=== PATIENT | female | born 1985 | race Caucasian/White ===

== ENCOUNTER 2019-08-15 14:03 | Day surgery (SDC) | payer OTHER ==
[2019-08-15 14:45] VITALS: BMI 42.3
--- NOTE | 2019-08-15 15:29 | PDOC.FPROB ---
FMR OB H&P: HPI - History of Present Illness Indentification: at 21.2 weeks here for cramping History of Present Illness: 33 yo [id number] at 21.1 weeks here for persistent cramping pain. Started on the left side yesterday, took GasX which did not resolve. Pain moved to right side. Present right now, lower bilterally, feels like cramping, worse with position changes, some lower pain in the back. Denies fevers, chills. No diarrhea, has been recently constipated since being placed on iron. Associated nausea and anorexia, no emesis. No dyuria or frequency. No VB/VD/LOF. Endorses movement. Primary Care Physician: Dr. Krueger FMR OB H&P: Current - Care : 5 Para: 2022 Gestational age: 21.1 Due date: 12/25/19 - OB Labs Blood type: unknown RH: unknown Antibody Screen: unknown HIV: unknown RPR: unknown HepBsAg: unknown Quad screen: unknown Urine drug screen: not done Gonorrhea: unknown Chlamydia: unknown GBS: unknown FMR OB H&P: History - Past Medical History PMH: Anxiety - OB History OB History: 1 term 1 pLTCS with twin delivery 2 SABs - CLINICAL HAEMATOLOGIST History CLINICAL HAEMATOLOGIST History: Denies - Surgical History Sx History: Laparascopic surgery for endometriosis 1 pLTCS - Social History Social History: Denies TAD - Family History Family History: Denies FMR OB H&P: Medications - Current Home Medications: Medication Instructions Recorded Confirmed Type Mv-Mn/Iron/FA/Herbal/Digestive 1 tablet PO DAILY 04/25/16 07/03/16 History [ One Tablet] Sertraline HCl [Zoloft] 100 mg PO HS 04/25/16 07/03/16 History Ferrous Sulfate [Feosol] 325 mg PO BID tab 07/07/16 Rx Aspirin Chewable [Aspirin Chewable 08/15/19 History Tablet] Allergies/Adverse Reactions: Allergies Allergy/AdvReac Type Severity Reaction Status Date / Time No Known Drug Allergies Allergy Verified 08/15/19 14:38 FMR OB H&P: ROS - Review of Systems General: reports: weight/appetite/sleep changes. denies: fever/chills, night sweats Eyes: denies: eye pain, vision changes, double vision ENT: denies: nasal congestion, rhinorrhea Cardiovascular: denies: chest pain, edema Respiratory: denies: cough, congestion, shortness of breath Gastrointestinal: reports: abdominal pain, nausea, constipation. denies: indigestion, bloating, vomiting, diarrhea Genitourinary (Female): denies: incontinence, dysuria, hematuria, vaginal discharge, vaginal pain, vaginal bleeding Musculoskeletal: denies: pain, stiffness, tenderness Neurologic: denies: numbness, syncope, seizures, weakness Integumentary: denies: itching, rash Breast: denies: lumps, bumps Endocrine: denies: cold intolerance, heat intolerance Hematologic/Lymphatic: denies: prolonged or excessive bleeding, enlarged lymph nodes Psychological: reports: anxiety. denies: depression FMR OB H&P: Physical Exam - Physical Exam General: NAD, awake, alert and oriented HEENT: normocephalic and atraumatic, PERRLA, EOMI, MMM, conjunctiva clear Neck: supple, FROM, trachea midline Chest: non-tender to palpation Heart: RRR, normal S1/S2, no murmurs/rubs/gallops General: CTAB, no respiratory distress, good air movement Abdomen: soft, bowel sound present, other (mild tenderness to deep palpation in RLQ) Musculoskeletal: normal gait and station, pulses present, no atrophy Skin: no rash, good tugor, capillary refill <2 seconds Lymphatic: no unusual bruising or bleeding, no purpura FMR OB H&P: A/P - Problem List (1) with 21 completed weeks gestation Current Visit: Yes Status: Acute Code(s): Z3A.21 - 21 WEEKS GESTATION OF (2) Abdominal pain Current Visit: Yes Status: Acute Code(s): R10.9 - UNSPECIFIED ABDOMINAL PAIN Disposition: 1. sIUP at 21 weeks -FHTs present -No signs of labor but will get TVUS to assess for CL 2. Abd pain -UA clean catch -CBC/CRP to further assess for appendicitis. Afebrile but anorexia, nausea present -Could also be constipation but will r/o infection Discussion: Date/Time: 08/15/19 8975 This H&P was discussed with [] and [] who agree with the above documentation and plan.
[2019-08-15] MEDS ORDERED: hydrALAZINE 20 MG/ML VIAL SLOW IVP PRN (15:37)
[2019-08-15 15:49] LABS: Bacteria/HPF None Seen HPF (None Seen); Bilirubin Negative (Negative); Blood, Urine Negative (Negative); Clarity Clear (Clear); Glucose, Urine (Dipstick) Normal (Negative); Leukocyte Negative Leu/uL (Negative); Nitrite Negative (Negative); Protein, Urine (Dipstick) Negative (Neg-Trace); RBC/HPF None Seen HPF (0-3); Squamous Epithelial 0-3 HPF (0-3); Urobilinogen Normal mg/dL (Less than 2); WBC/HPF 0-3 HPF (0-3)
[2019-08-15 15:51] LABS: Urine Culture Reflex No No
--- NOTE | 2019-08-15 16:13 | PDOC.EVN ---
Event Note - Event Note Event Note: TVUS wasa 5cm. UA clear.
--- NOTE | 2019-08-15 16:18 | HP ---
TIME OF EVALUATION: 1535 hours until 1550 hours. This is a patient Dr. Krueger. CHIEF COMPLAINT: Nausea and constipation and some bilateral lower quadrant discomfort. HISTORY OF PRESENT ILLNESS: In brief, this is a 33-year-old female, G5, P2-0-2-3 (history of twins), who is at 21 weeks and 1 day with complaint of crampy, left greater than right pelvic pain, worse with ambulation. She also states some nausea, but no fever. She does admit to having some constipation due to her iron supplements. PAST MEDICAL HISTORY: Otherwise negative. OB HISTORY: She had a in the past and one set of twins. PAST SURGICAL HISTORY: Laparoscopy for endometriosis and a . SOCIAL HISTORY: Negative for alcohol, tobacco, and drug use. PHYSICAL EXAMINATION: VITAL SIGNS: She is afebrile and normotensive. GENERAL: Clinically, she is in no acute distress. ABDOMEN: I evaluated the patient's abdomen at bedside, and though it is slightly obese, it is nonsurgical. Uterine fundus is also soft and nontender. PELVIC: On perineal inspection, there is no gross evidence of bleeding or of leakage of fluid. Doppler heart tones are 140 to 150s on spot check (monitors are not on due to EGA). INTERVENTIONS ORDERED: We have ordered a UA, CBC, and a transvaginal ultrasound. ASSESSMENT: This is a 33-year-old female, 5, para 2-0-2-3, who is at 21 weeks and 1 day with nonspecific lower pelvic pain. Although she is having some nausea with this pain, she does have a possible etiology which is her constipation. Constipation could explain the spasm/colicky type of lower pelvic pain and nausea. However, I did talk to her about the possibility of subacute appendicitis. However, the fact that she is not febrile is reassuring. PLAN: 1. Await the test as above. 2. I did discuss with the patient, and Dr. Flores who was present with me, the possibility of an MRI for appendix check. We both agree that we can defer this until necessary because my index of suspicion is not very high at this time. 3. We will await for the laboratory interventions and I do suspect that this is likely a combination of round ligament pain and possibly constipation, although we did address the issue of an MRI if necessary. Job ID: [id number] [facility]
--- NOTE | 2019-08-15 16:26 | ULT ---
Limited obstetrical ultrasound INDICATION: History of with cramps; evaluate cervical length COMPARISON: None FINDINGS: The cervical length measures 5.2 cm without evidence of funneling. IMPRESSION: Cervical length as above
[2019-08-15 16:51] LABS: #Basophils 0.1 thou/uL (0.0-0.2); #Eosinphils 0.1 thou/uL (0.0-0.7); #Lymphocytes 1.3 thou/uL (1.20-3.40); #Monocytes 0.4 thou/uL (0.11-0.59); #Neutrophils 8.6 thou/uL (1.40-6.50); %Basophils 0.7 % (0.0-1.0); %Lymphocytes 12.4 % (21.0-51.0); %Monocytes 4.1 % (0.0-10.0); %Neutrophils 81.9 % (42.0-75.0); Hemoglobin 12.5 g/dL (12.0-16.0); Mean Corpuscular Hemoglobin 27.4 pg (27.0-31.0); Mean Corpuscular Volume 85.4 fL (78.0-98.0); Mean Platelet Volume 8.1 fL (7.4-10.4); Platelet Count 220 thou/uL (130-400); RBC Distribution Width 15.8 % (11.5-14.5); Red Blood Cell (RBC) Count 4.56 mill/uL (4.20-5.40); White Blood Cell (WBC) Count 10.5 thou/uL (4.8-10.8)
--- NOTE | 2019-08-15 17:04 | PDOC.EVN ---
Event Note - Event Note Event Note: CBC wnl
--- NOTE | 2019-08-15 17:12 | PDOC.BPN ---
- Brief Progress Note UA wnl CBC wnl Abd pain improved, discussed with patient no indication for imaging at this time but if pain worsens or persists please come back. Has f/u appt with Dr. Krueger on Friday so advised to keep that. Call for any questions. Explained pain could also be d/t constipation so advised good water intake and stool softeners which she has.
== END 2019-08-15 17:49 | disposition home or self-care (01) ==
LOC: L&D/OP 14:03
PROVIDERS: ATTEND Student in an Organized Health Care Education/Training Program
DX: O99.89 Other specified diseases and conditions complicating pregnancy, childbirth and the puerperium (principal); R10.9 Unspecified abdominal pain; O99.342 Other mental disorders complicating pregnancy, second trimester; F41.9 Anxiety disorder, unspecified; O34.211 Maternal care for low transverse scar from previous cesarean delivery; Z3A.21 21 weeks gestation of pregnancy; Z79.82 Long term (current) use of aspirin; Z79.899 Other long term (current) drug therapy
CPT/HCPCS: 36415; 76856; 81001; 85025; 86140; 99282

== ENCOUNTER 2019-12-14 12:16 | Inpatient (IN) | payer OTHER ==
[2019-12-14] MEDS ORDERED: Butorphanol Tartrate 1 MG/ML VIAL SLOW IVP PRN (13:36)
[2019-12-14] MEDS ORDERED: Lidocaine 1% (PF) 30 ML VIAL SC PRN (13:36)
[2019-12-14] MEDS ORDERED: hydrALAZINE 20 MG/ML VIAL SLOW IVP PRN (13:36)
[2019-12-14] MEDS ORDERED: HYDROcodone/Acetaminophen 5/325 mg Tablet PO PRN (13:36)
[2019-12-14] MEDS ORDERED: Ibuprofen 800 MG TAB PO PRN (13:36)
[2019-12-14] MEDS ORDERED: Ondansetron PF 4 MG/2 ML Vial IVP PRN ×2 (13:36→20:53)
[2019-12-14] MEDS ORDERED: Lactated Ringer's 1,000 ML IV SCH (13:45)
[2019-12-14] MEDS ORDERED: Penicillin G Potassium 5 MILL.UNITS in Sodium Chloride 0.9% 100 ML IVPB SCH (13:45)
[2019-12-14] MEDS: Lactated Ringer's 1,000 ML IV SCH ×2 (14:45→20:48)
[2019-12-14 14:47] LABS: Hemoglobin 13.9 g/dL (12.0-16.0); Mean Corpuscular HGB CONC 32.8 g/dL (32.0-36.0); Mean Corpuscular Hemoglobin 28.3 pg (27.0-31.0); Mean Corpuscular Volume 86.5 fL (78.0-98.0); Mean Platelet Volume 9.8 fL (7.4-10.4); Platelet Count 259 thou/uL (130-400); RBC Distribution Width 14.4 % (11.5-14.5); Red Blood Cell (RBC) Count 4.89 mill/uL (4.20-5.40); White Blood Cell (WBC) Count 13.9 thou/uL (4.8-10.8)
[2019-12-14 15:24] LABS: Hep B Surf Ag Non-Reactive S/CO (NonReactive); Syphilis Antibody Nonreactive (Nonreactive); Syphilis Antibody Index 0.07 S/CO (<1.00 Non-Reactive)
[2019-12-14 15:44] VITALS: BMI 43.6
[2019-12-14] MEDS ORDERED: Fentanyl 4 mcg/Bup 0.1% Cadd 100 ML ONE (19:30)
[2019-12-14] MEDS: Penicillin G 2.5 MILL.units 2.5 MILL.UNITS in Premix Bag 1 BAG IVPB SCH (20:10)
[2019-12-14] MEDS ORDERED: Bupivacaine 0.5% 10 ML VIAL ONE (20:18)
[2019-12-14] MEDS ORDERED: Fentanyl 100 MCG/2 ML VIAL ONE (20:18)
[2019-12-14] MEDS ORDERED: Fentanyl 100 MCG/2 ML VIAL I-THECAL SCH (20:53)
[2019-12-14] MEDS ORDERED: EPHEDRINE 25 MG/5 ML SYRINGE SLOW IVP PRN (20:53)
[2019-12-14] MEDS ORDERED: Naloxone HCl 0.4 mg/ml Vial IVP PRN ×2 (20:53)
[2019-12-14] MEDS ORDERED: diphenhydrAMINE 50 MG/ML VIAL IVP PRN (20:53)
[2019-12-14] MEDS ORDERED: Acetaminophen 325 MG TAB PO PRN (20:53)
[2019-12-14] MEDS ORDERED: Promethazine HCl 25 MG/ML VIAL IM PRN (20:53)
[2019-12-14] MEDS ORDERED: Lactated Ringer's 500 ML IV PRN (20:53)
[2019-12-14] MEDS ORDERED: Fentanyl 4 mcg/Bupivacaine 0.1% Cassette 100 ML EPIDURAL SCH (21:00)
[2019-12-14] MEDS ORDERED: Communication Order-Pharmacy FS SCH (21:00)
[2019-12-14] MEDS ORDERED: NS w/ Oxytocin 10 units 500 ML IVPB SCH (21:00)
--- NOTE | 2019-12-14 21:16 | PDOC.LDHP ---
Labor and Delivery H&P Chief complaint: contractions HPI: 34yo at 38w2d by LMP here with painful contractions and elevated blood pressures in clinic. No sx PIH. No LOF VB. Good FM. Current gestational age (weeks): 38 Dating criteria: last menstrual period Grav: 5 Para: 3 OB History Details: prior CS x 1 for twins Current complications: none Abnormal US findings: No Past Medical History: CHTN-no meds, anxiety and anemia Current medications: pre-ivonne vitamins, iron, other (buspirone, baby asa) Previous surgical history: none Allergies/Adverse Reactions: Allergies Allergy/AdvReac Type Severity Reaction Status Date / Time No Known Drug Allergies Allergy Verified 12/14/19 14:55 Social history: none - Physical Exam Vital signs reviewed and normal: yes General: NAD Heart: RRR Lungs: CTAB Abdomen: gravid Extremeties: no edema FHT: category 1 Erskine contractions every: 3-4min - Vaginal Exam cm dilated: 3 Effacement: 50% Station: -2 (arom bloody scant) - OB Labs Blood type: A RH: positive Antibody Screen: negative HIV: negative RPR: negative HEPSAg: negative 1 hour GCT: positive 3 hour GTT: borderline but negative GBS: positive Urine drug screen: negative Rubella: immune - Assessment L&D Assessment: term patient in labor - Plan Plan: admit to L&D, labor augmentation if indicated, informed consent obtained, anesthesia consult for pain management -: Pt desires TOLAC, prior CS for twins > 2 years ago. Understands risk of uterine rupture with TOLAC and doubled risk with use of pitocin. Pt in early labor. AROM and pit if needed. GBS ppx started. Pt desires to proceed with TOLAC.
[2019-12-15] MEDS: NS / Oxytocin 40 units/1000ml 1,000 ML IV PRN ×2 (00:23→02:34)
--- NOTE | 2019-12-15 01:50 | DN ---
DATE OF PROCEDURE: 12/15/2019 The patient delivered a female on 12/15/2019 at 0019 hours by an uncomplicated term spontaneous vaginal delivery. The patient had a successful vaginal after . Apgars were 9 and 9. Weight is unavailable at the time of dictation. Gestational age is 38 weeks and 3 days. Placenta delivered spontaneously, followed by Pitocin infusion. There were no lacerations. Quantitative blood loss is unavailable at the time of dictation. Estimated blood loss [address] Boogie is the delivering physician. Counts were correct. Complications none. Mother and baby were stable in the room in the immediate . Job ID: [id number]
[2019-12-15] MEDS: Penicillin G 2.5 MILL.units 2.5 MILL.UNITS in Premix Bag 1 BAG IVPB SCH ×2 (08:02→08:04)
[2019-12-15] MEDS: Lactated Ringer's 1,000 ML IV SCH (08:03)
--- NOTE | 2019-12-15 08:11 | PDOC.PP ---
Post Progress Note Post Day #: 0 PO intake tolerated: yes Flatus: no Ambulation: no Vital Signs (12 hours) Temp Pulse Resp BP Pulse Ox 12/15/19 06:32 97.6 F 70 18 115/64 98 Weight Weight 287 lb - Physical Examination General: NAD Respiratory: non-labored breathing Abdominal: no distention, appropriately TTP Skin: no rash Neurological: no gross focal deficits Psychiatric: normal affect Result Diagrams: 12/14/19 14:15 Additional Labs: Post Labs Hep Bs Antigen Non-Reactive S/CO (NonReactive) 12/14/19 14:15 Blood Type A POSITIVE 12/14/19 14:15
[2019-12-15] MEDS ORDERED: HYDROcodone/Acetaminophen 5/325 mg Tablet PO PRN ×2 (09:57)
[2019-12-15] MEDS ORDERED: Benzocaine-Menthol 82.5 ML CAN TOP PRN (09:57)
[2019-12-15] MEDS ORDERED: Ondansetron PF 4 MG/2 ML Vial IVP PRN (09:57)
[2019-12-15] MEDS ORDERED: Bisacodyl 10 MG SUPP PR PRN (09:57)
[2019-12-15] MEDS ORDERED: Milk Of Magnesia 30 ML UDCUP PO PRN (09:57)
[2019-12-15] MEDS ORDERED: hydrALAZINE 20 MG/ML VIAL SLOW IVP PRN (09:57)
[2019-12-15] MEDS ORDERED: Preparation H Ointment 28 GM TUBE PR PRN (09:57)
[2019-12-15] MEDS ORDERED: diphenhydrAMINE 25 MG CAP PO PRN (09:57)
[2019-12-15] MEDS ORDERED: NS / Oxytocin 40 units/1000ml 1,000 ML IV SCH (09:57)
[2019-12-15] MEDS ORDERED: Lanolin Ointment 7 GM TUBE TOP PRN (09:57)
[2019-12-15] MEDS ORDERED: Adacel (T-DAP) 0.5 ML SYRINGE IM ONE (09:57)
[2019-12-15] MEDS: Ibuprofen 800 MG TAB PO SCH ×2 (12:18→21:27)
[2019-12-15 13:14] LABS: SARS-CoV-2 MS2 Positive; SARS-CoV-2 N Gene Negative; SARS-CoV-2 S Gene Negative; SARS-CoV-2 by NAA Not Detected (NotDetected); SARS-CoV-2 orf1ab Negative
[2019-12-15] MEDS: Ferrous Sulfate 325 MG TAB PO SCH (15:34)
[2019-12-15] MEDS ORDERED: busPIRone HCl 10 MG TAB PO SCH (21:00)
[2019-12-15] MEDS: Docusate Calcium (SURFAK) 240 MG CAP PO SCH (21:26)
[2019-12-16] MEDS: Ibuprofen 800 MG TAB PO SCH (05:15)
[2019-12-16 08:24] VITALS: BP 118/67; TEMP 98
[2019-12-16] MEDS ORDERED: Prenatal Vitamin 1 TAB PO SCH (09:00)
--- NOTE | 2019-12-16 09:39 | PDOC.PP ---
Post Progress Note Post Day #: 1 PO intake tolerated: yes Flatus: yes Ambulation: yes Vital Signs (12 hours) Temp Pulse Resp BP Pulse Ox 12/16/19 08:18 98.0 F 70 20 118/67 98 12/16/19 00:31 97.7 F 70 18 126/68 97 Weight Weight 287 lb - Physical Examination General: NAD Respiratory: non-labored breathing Abdominal: no distention, appropriately TTP Fundus firm & at: umb-2 Neurological: no gross focal deficits Psychiatric: normal affect Result Diagrams: 12/14/19 14:15 Additional Labs: Post Labs Hep Bs Antigen Non-Reactive S/CO (NonReactive) 12/14/19 14:15 Blood Type A POSITIVE 12/14/19 14:15 - Assessment/Plan PPD1 s/p VAVD VSSAF Doing well lochia < menses Rh pos RImm DC home FU 6w
[2019-12-16] MEDS ORDERED: FLU VACC QS2020-21(6MOS UP)/PF 60 MCG/0.5 ML SYRINGE IM ONE (10:00)
[2019-12-16] MEDS: Docusate Calcium (SURFAK) 240 MG CAP PO SCH (10:07)
[2019-12-16] MEDS: Ferrous Sulfate 325 MG TAB PO SCH (10:07)
== END 2019-12-16 13:55 | disposition home or self-care (01) | DRG 806 ==
LOC: L&D 12:16 → 3SW 12-15 06:32
PROVIDERS: ADMIT Student in an Organized Health Care Education/Training Program; ATTEND Student in an Organized Health Care Education/Training Program
PROC: 10E0XZZ Delivery of Products of Conception, External Approach (ICD-10-PCS; principal; 2019-12-15)
PROC: 10907ZC Drainage of Amniotic Fluid, Therapeutic from Products of Conception, Via Natural or Artificial Opening (ICD-10-PCS; 2019-12-15)
PROC: 3E0234Z Introduction of Serum, Toxoid and Vaccine into Muscle, Percutaneous Approach (ICD-10-PCS; 2019-12-16)
DX: O34.211 Maternal care for low transverse scar from previous cesarean delivery (principal); O10.02 Pre-existing essential hypertension complicating childbirth; Z37.0 Single live birth; Z23 Encounter for immunization; O99.344 Other mental disorders complicating childbirth; F41.9 Anxiety disorder, unspecified; O99.02 Anemia complicating childbirth; Z20.828 Contact with and (suspected) exposure to other viral communicable diseases; D64.9 Anemia, unspecified; Z3A.38 38 weeks gestation of pregnancy
CPT/HCPCS: 36415; 51702; 85027; 86780; 86850; 86900; 86901; 87340; 87635; 99285; J2405; J2540; J2590; J3010; J3490; U0003